=== PATIENT | male | born 1980 | race Caucasian/White ===

== ENCOUNTER 2025-02-25 15:53 | Outpatient (AMB) | payer OTHER, SELFPAY ==
--- OUTSIDE RECORDS SUMMARY | 2025-02-25 15:54 | XMS_ITS | Continuity of Care Document ---
Author Name [facility] Organization [facility] Care Team Providers Care Ignition Specialist Name Role Phone [facility] Unavailable Unavailable Immunizations Combined list of available immunizations from the Department of Defense and Veterans Affairs facilities. 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 Status Comments Source influenza, injectable, quadrivalent 2022 [id number] 158 Seqirus complet ed influenza , injectabl e, quadrival ent 05/04/23 Given Ambulat ory Pharmac y influenza, injectable, quadrivalent- pf 2021 [id number] 150 GlaxoSmithKli ne complet ed influenza , injectabl e, quadrival ent-pf 05/16/22 Given Ambulat ory Pharmac y influenza, injectable, quadrivalent- pf 2021 [id number] 150 GlaxoSmithKli ne complet ed influenza , injectabl e, quadrival ent-pf 05/16/22 Given Ambulat ory Pharmac y Influenza, injectable, quadrivalent, preservative free 0 2021 [id number] 150 SmithKline (SKB) complet ed Influenza , injectabl e, quadrival ent, preservat erin free [facility] influenza virus vaccine, inactivated 2020 [id number] Seqirus complet ed influenza virus vaccine, inactivat ed 06/18/21 Given Ambulat ory Pharmac y influenza virus vaccine, inactivated 2020 [id number] Seqirus complet ed influenza virus vaccine, inactivat ed 06/18/21 Given Ambulat ory Pharmac y Influenza, injectable, Madin Wellman Canine Kidney, quadrivalent with preservative 0 2020 [id number] 186 Seqirus (SEQ) comple t ed Influenza , injectabl e, Madin Carmela Canine Kidney, quadrival ent with preservat erin DoD COVID Vaccine Pfizer 2020 [id number] PFIZER complet ed COVID Vaccine Pfizer 12/25/20 Given Ambulat ory Pharmac y COVID Vaccine Pfizer 2020 [id number] PFIZER complet ed COVID Vaccine Pfizer 12/25/20 Given Ambulat ory Pharmac y SARS-COV-2 (COVID-19) vaccine, mRNA, spike protein, LNP, preservative free, 30 mcg/0.3mL dose 2 2020 [id number] 208 Pfizer, Inc (PFR) complet ed SARS-COV- 2 (COVID-19 ) vaccine, mRNA, spike protein, LNP, preservat erin free, 30 mcg/0.3mL dose DoD COVID Vaccine Pfizer 2020 [id number] 208 PFIZER complet ed COVID Vaccine Pfizer 12/04/20 Given Ambulat ory Pharmac y COVID Vaccine Pfizer 2020 [id number] PFIZER complet ed COVID Vaccine Pfizer 12/04/20 Given Ambulat ory Pharmac y SARS-COV-2 (COVID-19) vaccine, mRNA, spike protein, LNP, preservative free, 30 mcg/0.3mL dose 1 2020 [id number] 208 eBillme, Inc (PFR) complet ed SARS-COV- 2 (COVID-19 ) vaccine, mRNA, spike protein, LNP, preservat erin free, 30 mcg/0.3mL dose DoD influenza, injectable, quadrivalent- pf 2019 [id number] 150 Seqirus complet ed influenza , injectabl e, quadrival ent-pf 07/20/20 Given Ambulat ory Pharmac y influenza, injectable, quadrivalent- pf 2019 [id number] 150 Seqirus complet ed influenza , injectabl e, quadrival ent-pf 07/20/20 Given Ambulat ory Pharmac y Influenza, injectable, quadrivalent, preservative free 0 2019 [id number] 150 Seqirus (SEQ) complet ed Influenza , injectabl e, quadrival ent, preservat erin free DoD influenza, injectable, quadrivalent- pf 2018 [id number] 150 Seqirus complet ed influenza , injectabl e, quadrival ent-pf 06/27/19 Given Ambulat ory Pharmac y influenza, injectable, quadrivalent- pf 2018 [id number] 150 Seqirus complet ed influenza , injectabl e, quadrival ent-pf 06/27/19 Given Ambulat ory Pharmac y Influenza, injectable, quadrivalent, preservative free 0 2018 [id number] 150 Seqirus (SEQ) complet ed Influenza , injectabl e, quadrival ent, preservat erin free DoD tetanus, diphtheria, acellular pertu is 2018 [id number] 115 sanofi pasteur complet ed tetanus, diphtheri a, acellular pertussis 08/30/18 Given Ambulat ory Pharmac y tetanus, diphtheria, acellular pertu is 2018 [id number] 115 sanofi pasteur complet ed tetanus, diphtheri a, acellular pertussis 08/30/18 Given Ambulat ory Pharmac y tetanus toxoid, reduced diphtheria toxoid, and acellular pertu is vaccine, adsorbed 2 2018 [id number] 115 Sanofi Pasteur (PMC) complet ed tetanus toxoid, reduced diphtheri a toxoid, and acellular pertussis vaccine, adsorbed DoD influenza, injectable, quadrivalent- pf 2017 [id number] 150 Seqirus complet ed influenza , injectabl e, quadrival ent-pf 06/27/18 Given Ambulat ory Pharmac y influenza, injectable, quadrivalent- pf 2017 [id number] 150 Seqirus complet ed influenza , injectabl e, quadrival ent-pf 06/27/18 Given Ambulat ory Pharmac y Influenza, injectable, quadrivalent, preservative free 0 2017 [id number] 150 Seqirus (SEQ) comple t ed Influenza , injectabl e, quadrival ent, preservat erin free DoD influenza, injectable, quadrivalent 2016 [id number] ID Biomedical comple t ed influenza , injectabl e, quadrival ent 05/25/17 Given Ambulat ory Pharmac y influenza, injectable, quadrivalent 2016 [id number] 158 ID Biomedical comple t ed influenza , injectabl e, quadrival ent 05/25/17 Given Ambulat ory Pharmac y influenza, injectable, quadrivalent, contains preservative 0 2016 [id number] 158 (IDB) complet ed influenza , injectabl e, quadrival ent, contains preservat erin DoD influenza, seasonal, injectable-pf 2015 140 Seqirus complet ed influenza , seasonal, injectabl e-pf 06/25/16 Given Ambulat ory Pharmac y influenza virus vaccine, unspecified 2015 [id number] 88 Seqirus complet ed influenza virus vaccine, unspecifi ed 06/25/16 Given Ambulat ory Pharmac y influenza, seasonal, injectable-pf 2015 140 Seqirus complet ed influenza , seasonal, injectabl e-pf 06/25/16 Given Ambulat ory Pharmac y influenza virus vaccine, unspecified 2015 [id number] 88 Seqirus complet ed influenza virus vaccine, unspecifi ed 06/25/16 Given Ambulat ory Pharmac y Influenza, seasonal, injectable, preservative free 2015 CH[place], () Not Given Influenza , seasonal, injectabl e, preservat erin free DoD influenza virus vaccine, unspecified formulation 0 2015 [id number] 88 Seqirus (SEQ) comple t ed influenza virus vaccine, unspecifi ed formulati on DoD influenza, seasonal, injectable-pf 2014 [id number] 140 CSL Behring complet ed influenza , seasonal, injectabl e-pf 05/07/15 Given Ambulat ory Pharmac y influenza, seasonal, injectable-pf 2014 [id number] 140 CSL Behring complet ed influenza , seasonal, injectabl e-pf 05/07/15 Given Ambulat ory Pharmac y Influenza, seasonal, injectable, preservative free 0 2014 [id number] 140 CSL Biotherapies, Inc. ([facility]) complet ed Influenza , seasonal, injectabl e, preservat erin free DoD influenza, seasonal, injectable-pf 2013 [id number] 140 CSL Behring complet ed influenza , seasonal, injectabl e-pf 04/24/14 Given Ambulat ory Pharmac y Influenza, seasonal, injectable, preservative free 0 2013 [id number] 140 CSL Biotherapies, Inc. (CSL) complet ed Influenza , seasonal, injectabl e, preservat erin free DoD influenza, seasonal, injectable 2013 [id number] 141 CSL Behring complet ed influenza , seasonal, injectabl e 04/09/14 Given Ambulat ory Pharmac y influenza, seasonal, injectable 2013 [id number] 141 CSL Behring complet ed influenza , seasonal, injectabl e 04/09/14 Given Ambulat ory Pharmac y Influenza, seasonal, injectable 0 2013 [id number] 141 CS SVXRherapies, Inc. (CSL) complet ed Influenza , seasonal, injectabl e DoD Influenza, injectable, MDCK-pf 2012 [id number] 153 Novartis Pharmaceutica ls complet ed Influenza , injectabl e, MDCK-pf 05/16/13 Given Ambulat ory Pharmac y Influenza, injectable, MDCK-pf 2012 [id number] 153 Novartis Pharmaceutica ls complet ed Influenza , injectabl e, MDCK-pf 05/16/13 Given Ambulat ory Pharmac y Influenza, injectable, Madin Wellman Canine Kidney, preservative free 0 2012 [id number] 153 Novartis AppFirsttica l Zechariah. (NOV) complet ed Influenza , injectabl e, Madin Wellman Canine Kidney, preservat erin free DoD measles virus vaccine 0 2012 05 () Not Given measles virus vaccine DoD rubella virus vaccine 0 2012 06 () Not Given rubella virus vaccine DoD influenza, seasonal, injectable-pf 2011 [id number] 140 CSL Behring complet ed influenza , seasonal, injectabl e-pf 05/17/12 Given Ambulat ory Pharmac y influenza, seasonal, injectable-pf 2011 [id number] 140 CSL Behring complet ed influenza , seasonal, injectabl e-pf 05/17/12 Given Ambulat ory Pharmac y Influenza, seasonal, injectable, preservative free 0 2011 [id number] 140 CS SVXRherapies, Inc. (CSL) complet ed Influenza , seasonal, injectabl e, preservat erin free DoD influenza virus vaccine, live 2010 [id number] 111 Medimmune Inc comple t ed influenza virus vaccine, live 06/22/11 Given Ambulat ory Pharmac y influenza virus vaccine, live 2010 [id number] 111 Medimmune Inc comple t ed influenza virus vaccine, live 06/22/11 Given Ambulat ory Pharmac y influenza virus vaccine, live, attenuated, for intranasal use 0 2010 [id number] 111 [employer], Inc. (MED) complet ed influenza virus vaccine, live, attenuate d, for intranasa l use DoD influenza virus vaccine,split 2009 [id number] 1B 15 CSL Behring complet ed influenza virus vaccine,s plit 03/31/10 Given Ambulat ory Pharmac y influenza virus vaccine,split 2009 [id number] 1B 15 CSL Behring complet ed influenza virus vaccine,s plit 03/31/10 Given Ambulat ory Pharmac y influenza virus vaccine, split virus (incl. purified surface antigen)-reti red CODE 0 2009 [id number] 1B 15 CS [employer] Inc. (CSL) complet ed influenza virus vaccine, split virus (incl. purified surface antigen)- retired CODE DoD Novel influenza-H1N 1-09, injectable 2009 [id number] 1A 127 Novartis Pharmaceutica ls complet ed Novel influenza -J2L2-34, injectabl e 08/26/09 Given Ambulat ory Pharmac y Novel influenza-H1N 1-09, injectable 2009 [id number] 1A 127 Novartis Pharmaceutica ls complet ed Novel influenza -Y9I9-16, injectabl e 08/26/09 Given Ambulat ory Pharmac y Novel influenza-H1N 1-09, injectable 1 2009 [id number] 1A 127 Novartis AppFirsttica l Zechariah. (NOV) complet ed Novel influenza -[id number], injectabl e DoD typhoid Vi capsular polysaccharid e vac 2008 [id number] 101 sanofi pasteur complet ed typhoid Vi capsular polysacch aride vac 06/28/09 Given Ambulat ory Pharmac y influenza virus vaccine, live 2008 [id number] 111 Adwanted Inc comple t ed influenza virus vaccine, live 06/28/09 Given Ambulat ory Pharmac y hepatitis A-hepatitis B vaccine 2008 [id number] 5AA 104 GlaxoSmithKli ne complet ed hepatitis A-hepatit is B vaccine 06/28/09 Given Ambulat ory Pharmac y hepatitis A-hepatitis B vaccine 2008 [id number] 5AA 104 GlaxoSmithKli ne complet ed hepatitis A-hepatit is B vaccine 06/28/09 Given Ambulat ory Pharmac y influenza virus vaccine, live 2008 [id number] 111 Medimmune Inc comple t ed influenza virus vaccine, live 06/28/09 Given Ambulat ory Pharmac y hepatitis A-hepatitis B vaccine 2008 [id number] 5AA 104 GlaxoSmithKli ne complet ed hepatitis A-hepatit is B vaccine 06/28/09 Given Ambulat ory Pharmac y typhoid Vi capsular polysaccharid e vac 2008 [id number] 101 sanofi pasteur complet ed typhoid Vi capsular polysacch aride vac 06/28/09 Given Ambulat ory Pharmac y typhoid Vi capsular polysaccharid e vaccine 1 2008 [id number] 101 Sanofi Pasteur (PMC) complet ed typhoid Vi capsular polysacch aride vaccine DoD hepatitis A and hepatitis B vaccine 3 2008 [id number] 5AA 104 SmithKline (SKB) complet ed hepatitis A and hepatitis B vaccine DoD influenza virus vaccine, live, attenuated, for intranasal use 0 2008 [id number] 111 [employer]. (MED) complet ed influenza virus vaccine, live, attenuate d, for intranasa l use DoD hepatitis A-hepatitis B vaccine 2008 [id number] 5AA 104 GlaxoSmithKli ne complet ed hepatitis A-hepatit is B vaccine 08/23/08 Given Ambulat ory Pharmac y hepatitis A-hepatitis B vaccine 2008 [id number] 5AA 104 GlaxoSmithKli ne complet ed hepatitis A-hepatit is B vaccine 08/23/08 Given Ambulat ory Pharmac y hepatitis A-hepatitis B vaccine 2008 [id number] 5AA 104 GlaxoSmithKli ne complet ed hepatitis A-hepatit is B vaccine 08/23/08 Given Ambulat ory Pharmac y hepatitis A and hepatitis B vaccine 2 2008 [id number] 5AA 104 SmithKline (SKB) complet ed hepatitis A and hepatitis B vaccine DoD hepatitis A-hepatitis B vaccine 2007 [id number] 5AA 104 GlaxoSmithKli ne complet ed hepatitis A-hepatit is B vaccine 07/12/08 Given Ambulat ory Pharmac y hepatitis A-hepatitis B vaccine 2007 [id number] 5AA 104 GlaxoSmithKli ne complet ed hepatitis A-hepatit is B vaccine 07/12/08 Given Ambulat ory Pharmac y measles, mumps and rubella virus vaccine 0 2007 03 () Not Given measles, mumps and rubella virus vaccine DoD varicella virus vaccine 0 2007 21 () Not Given varicella virus vaccine DoD hepatitis A and hepatitis B vaccine 1 2007 [id number] 5AA 104 SmithKlLittle Big Things (SKB) complet ed hepatitis A and hepatitis B vaccine DoD tuberculin purified protein derivative 2007 [id number] 96 sanofi pasteur complet ed tuberculi n purified protein derivativ e 07/10/08 Given Ambulat ory Pharmac y tuberculin purified protein derivative 2007 [id number] 96 sanofi pasteur complet ed tuberculi n purified protein derivativ e 07/10/08 Given Ambulat ory Pharmac y tetanus, diphtheria, acellular pertu is 2007 [id number] 115 sanofi pasteur complet ed tetanus, diphtheri a, acellular pertussis 07/07/08 Given Ambulat ory Pharmac y meningococcal A,C,Y,W-135 (MCV4P) 2007 [id number] 114 sanofi pasteur complet ed meningoco ccal A,C,Y,W-1 35 (MCV4P) 07/07/08 Given Ambulat ory Pharmac y influenza virus vaccine,split 2007 [id number] 1A 15 CSL Behring complet ed influenza virus vaccine,s plit 07/07/08 Given Ambulat ory Pharmac y poliovirus vaccine, inactivated 2007 [id number] 10 sanofi pasteur complet ed polioviru s vaccine, inactivat ed 07/07/08 Given Ambulat ory Pharmac y influenza virus vaccine,split 2007 [id number] 1A 15 CSL Behring complet ed influenza virus vaccine,s plit 07/07/08 Given Ambulat ory Pharmac y poliovirus vaccine, inactivated 2007 [id number] 10 sanofi pasteur complet ed polioviru s vaccine, inactivat ed 07/07/08 Given Ambulat ory Pharmac y tetanus, diphtheria, acellular pertu is 2007 [id number] 115 sanofi pasteur complet ed tetanus, diphtheri a, acellular pertussis 07/07/08 Given Ambulat ory Pharmac y meningococcal A,C,Y,W-135 (MCV4P) 2007 [id number] 114 sanofi pasteur complet ed meningoco ccal A,C,Y,W-1 35 (MCV4P) 07/07/08 Given Ambulat ory Pharmac y poliovirus vaccine, inactivated 1 2007 [id number] 10 Sanofi Pasteur (PMC) complet ed polioviru s vaccine, inactivat ed DoD influenza virus vaccine, split virus (incl. purified surface antigen)-reti red CODE 0 2007 [id number] 1A 15 CS [employer] [place]. (CSL) complet ed influenza virus vaccine, split virus (incl. purified surface antigen)- retired CODE DoD meningococcal polysaccharid e (groups A, C, Y and W-135) diphtheria toxoid conjugate vaccine (MCV4P) 1 2007 [id number] 114 Sanofi Pasteur (PMC) complet ed meningoco ccal polysacch aride (groups A, C, Y and W-135) diphtheri a toxoid conjugate vaccine (MCV4P) DoD tetanus toxoid, reduced diphtheria toxoid, and acellular pertu is vaccine, adsorbed 1 2007 [id number] 115 Sanofi Pasteur (PMC) complet ed tetanus toxoid, reduced diphtheri a toxoid, and acellular pertussis vaccine, adsorbed DoD Results Combined list of recent chemistry, hematology and other laboratory results from Department of Defense and Veterans Affairs, ranging from 15 months to all on record, depending upon the facility. Order Name Results Value Reference Range Date Interpretation Specimen Comments Source Infectiou s Disease HIV-1/O/2 Non-Reac tive 1 (08/19/24 2:27 PM) 08/19 N Interpretiv e Data: INTERPRETAT ION: This method is a screening procedure for the detection of HIV p24 Antigen and Antibodies to HIV-1, including Group O, and/or HIV-2. NON-REACTIV E: HIV-1 antigen and HIV-1 / HIV-2 antibodies were not detected. No laboratory evidence of HIV infection. A negative test result does not exclude the possibility of exposure to or infection with HIV. HIV antibodies and/or p24 antigen may be undetectabl e in some stages of the infection and in some clinical conditions. If acute HIV infection is suspected, consider submitting another specimen to a reference laboratory for HIV-1 RNA. SCREEN REACTIVE - CONFIRMATIO N TO FOLLOW: Possible presence of HIV-1antibo dies, HIV-2 antibodies and/or HIV-1 p24 antigen. Specimen will reflex to the confirmatio n testing that fulfills the Center for Disease Control and Prevention' s HIV diagnostic algorithm. Refer to [facility] Lab Guide for additional information : [email or web address] x Testing performed by [id number] Miscellan eous Sendouts Repository Sample Received (08/19/24 2:27 PM) 08/19 N [id number] Encounters Combined list of: 1) Encounters from Department of Veterans Affairs facilities going backup to the last 18 months, not all [place] inpatient encounters are included; 2) Encounters from the Department of [facility] facilities going backup to 280 months. Location Location Details Encounter Type Encounter Number Reason For Visit Attending Provider ADM Date DC Date Status Disposition Source [id number] AMDS Between Visit [id number] 08/05 Discharge Disposition: Home or Self Care [id number] AMDS [id number] AMDS Outpatient [id number] MIRELLA TAYLOR 08/20 Discharge Disposition: Home or Self Care [id number] AMDS [id number] AMDS Care Not Rendered [id number] 08/21 Discharge Disposition: Home or Self Care [id number] AMDS [id number] AMDS Dental [id number] LUIGI JACOB 12/25 Discharge Disposition: Home or Self Care [id number] AMDS Procedures Combined list of: 1) Procedures from [facility] of Veterans Affairs facilities going back up to thelast 18 months, not all [place] non-surgical procedures are included; 2) All procedures from the Department of [facility] facilities. Procedure Procedure Type Code Date Perfomer Comments Sourc e No data available for this section Ambulato ry Pharmacy PSYCHIATRIC DIAGNOSTIC EVALUATION 08/06/2022 DoD Social History Combined list of available smoking, tobacco, and other social history from Department of Defense and Veterans Affairs facilities. Social History Type Response Date Comment Sourc e This section is an empty social history section. DoD Assessment and Plan Combined list of future care activities from Department of Defense and Veterans Affairs facilities (e.g., assessment and plan notes, appointments, orders, and referrals). Additional future care activities may be listed in the Plan of Care section. Result Assessment and Plan Date Source Assessment and Plan No data available for this section 02/25/2025 Ambulatory Pharmacy Functional Status Combined list of recent functional and cognitive assessments recorded at [facility] of Defense and [facility] ([facility]).VA Functional [place] Measurement (FIM) Scale: 1 = Total Assistance (Subject = 0% +), 2 = Maximal Assistance (Subject = 25% +), 3 = Moderate Assistance (Subject = 50% +), 4 = Minimal Assistance (Subject = 75% +), 5 = Supervision, 6 = Modified [place] (Device), 7 = Complete [place] (Timely, Safely). Assessment Date/Time Source Assessment Type Assessment Skill Assessment Score Assessment Details No data available for this section
--- OUTSIDE RECORDS SUMMARY | 2025-02-25 15:55 | XMS_ITS | Clinical Summary ---
Author Organization [facility] [employer] [facility] lin Address [address] [place] [address] Care Team Providers Care Glove Operator Name Role Phone Pcp, No Primary Care Provider [phone] Allergies No known active allergies Medications No known medications Active Problems No known active problems Social History Tobacco Use Types Packs/Day Years Used Date Smoking Tobacco: Some Days Smokeless Tobacco: Never Alcohol Use Standard Drinks/Week Comments Yes 0 (1 standard drink = 0.6 oz pur e alcohol) Sex and Gender Information Value Date Recorded Sex Assigned at Not on file Legal Sex Male 7:24 AM EDT Gender Identity Not on file Sexual Orientation Not on file Last Filed Vital Signs Vital Sign Reading Time Taken Comments Blood Pressure - - Pulse 80 01/05/2021 2:08 PM EDT Temperature 36.3 C (97.3 F) 01/05/2021 2:08 PM EDT Respiratory Rate - - Oxygen Saturation 99% 01/05/2021 2:08 PM EDT Inhaled Oxygen Concentration - - Weight - - Height - - Body Mass Index - - Plan of Treatment Health Maintenance Due Date Last Done Comments Colorectal Cancer: COLONOSCO PY Screening every 10 yrs (or Modifier) 1978 Depression: Screening Annual ly using PHQ-2/9 in Adults 18 yrs or above (or HM Modifier)([facility]) 1996 Hepatitis C Virus Infection in Adolescents and Adults: Screening (or Modifier) ([facility]) 1996 SDNV Screening Reminder: Asmita rosen for all adults ([facility]) 1996 Tobacco Smoking Cessation: i n Adults excluding Women: Behavioral and Pharmacotherapy Interventions ([facility]) 1996 DTaP/Tdap/Td Vaccines ([facility]) (1 - Tdap) 1997 Colorectal Cancer Screening 45 -75 Yrs (or HM Modifier) 2023 Colorectal Cancer: FLEXIBLE SIGMOIDOSCOPY Screening every 5 yrs 2023 Colorectal Cancer: Fecal Immunochemical Test (FIT) Annually [facility] 2023 Colorectal Cancer: High-sens itivity gFOBT Screening Annually [facility] 2023 Colorectal Cancer: Stool Col oguard Screening every 3 yrs 2023 Colorectal Cancer:CT Colonog warren Screening every 5 yrs 2023 COVID-19 Vaccine Screening: Initial Series and Booster Status ([facility]) (2023- season) 2024 Flu Vaccination: Yearly for ages 18mos through 64 years (or Modifier)([facility]) 02/18/2025 Zoster/Shingles Vaccine Seri es Screening: Adults aged 18+ yrs (or HM Modifiers)([facility]) (1 of 2) 2028 Pneumococcal Vaccination Scr eening: Pts 0-19 & 19-49 yrs of age ([facility]) Aged Out No longer eligible based on patient's age to complete this topic Medical Devices Not on file Care Teams Glove Operator Relationship Specialty Start Date End Date Pcp, No PCP - General Family Medicine 08/15/21
--- OUTSIDE RECORDS SUMMARY | 2025-02-25 15:55 | XMS_ITS | Clinical Summary ---
Author Organization [facility] ity Address [address] [place] [address] Care Team Providers Care Pony Worker Name Role Phone Unavailable Primary Care Provider Unavailabl e Social History Tobacco Use Types Packs/Day Years Used Date Smoking Tobacco: Never Assessed Sex and Gender Information Value Date Recorded Sex Assigned at Not on file Legal Sex Male 8:09 PM EST Gender Identity Not on file Sexual Orientation Not on file Plan of Treatment Health Maintenance Due Date Last Done Comments DTaP,Tdap,and Td Vaccines (1 - Tdap) 1997 Hepatitis B Vaccines (1 of 3 - 19+ 3-dose series) 1997 Cholesterol Screening (Lipid Panel) 08/14/2023 Colorectal Cancer Screening: Colonoscopy 08/14/2023 HIV Screening 08/14/2023 Hepatitis C Screening 08/14/2023 Social Influencers of Health Screening 08/14/2023 COVID-19 Vaccine ( - 2023-2 5 season) 2024 Depression Screening 07/21/2024 Influenza Vaccine (#1) 2025 HIB Vaccines Aged Out No longer eligi ble based on patient's age to complete this topic HPV Vaccines Aged Out No longer eligi ble based on patient's age to complete this topic Hepatitis A Vaccines Aged Out No long er eligible based on patient's age to complete this topic IPV Vaccines Aged Out No longer eligi ble based on patient's age to complete this topic MMR Vaccines Aged Out No longer eligi ble based on patient's age to complete this topic Meningococcal ACWY Vaccine Aged Out N o longer eligible based on patient's age to complete this topic Meningococcal B Vaccine Aged Out No l onger eligible based on patient's age to complete this topic Pneumococcal Vaccine: Pediat rics (0 to 5 Years) and At-Risk Patients (6 to 49 Years) Aged Out No longer eligible b ased on patient's age to complete this topic RSV Immunization Patients Un aneta 20 months Aged Out No longer eligible b ased on patient's age to complete this topic Varicella Vaccines Aged Out No longer eligible based on patient's age to complete this topic
--- NOTE | 2025-02-25 16:06 | MHC.PC.OV ---
Vital Signs 02/25/25 16:07 Height 6 ft Weight 188 lb 2 oz BMI 25.5 BP 132/100 H Blood Pressure Location Lt brachial Position Sitting Respiration 18 Pulse 110 H Pulse Source Pulse Oximeter Temp 98.4 F Temp Source Oral Pulse Oximetry (%) 96 Oxygen Delivery Method Room Air Intake Visit Reasons: establish care Team Otr Truck Driver Required: No Accompanied by: Self / Same As Patient Allergies No Known Allergies Allergy (Verified 02/25/25 16:32) Medication List - Last Reconciled 02/25/25 by REBECCA Monaco No Known Home Meds Tobacco use date assessed: 02/25/25 Dental Screening Dental Screen Date: 02/25/25 Did you have a dental visit in the last 12 months?: Yes Did you have a dental problem in the last 6 months where you did not have access to dental care?: No Was dental information given to patient?: Patient has dentist HPI establish care HPI Details Previous PCP: no, when he was a kid Last visit: Last PE: Specialist: no OBGYN: Past medical history:seizure when he was in 8 grade, asthma, high blood pressure Medications: Family HX: htn: father, mother ; alzheimers, Problem: The patient is a 44-year-old male presenting for evaluation of hypertension, right shoulder pain, and left ankle sprain. Hypertension has been noted with elevated readings, particularly the diastolic pressure, and the patient has not had a primary care physician for many years, indicating a lack of regular monitoring. The patient reports a history of asthma, which has not required medication for a long time, suggesting mild or well-controlled symptoms. The patient experienced a seizure in the 8th grade but has not had any subsequent episodes, indicating a resolved seizure disorder. The patient reports symptoms of depression but has not engaged in regular therapy or medication management, although he is open to exploring these options. Vision impairment has been noted, with difficulty reading and the use of [id number] reading glasses, suggesting presbyopia. The patient reports right shoulder pain following a fall, with associated tingling in the right hand, indicating possible nerve involvement. The shoulder pain limits his ability to perform push-ups, and the tingling sometimes progresses to numbness. The left ankle was sprained a few weeks ago, with persistent swelling and pain, raising concerns about the ability to perform physical activities such as running. [facility] Medical History (Updated 03/21/25 @ 19:25 by REBECCA Monaco) Asthma Seizure Family History (Updated 02/25/25 @ 16:16 by Hazel Castro MA) Father Age: 79 Hypertension Skin cancer Mother Dementia Social History (Updated 02/25/25 @ 16:14 by Hazel Castro MA) Household Members: Friend(s) Housing: Apartment Alcohol intake: current Patient Tobacco Use Status: Never used Tobacco e-Cigarette/Vaping Use: Former Use service: Yes Current occupational status: employed Current occupation: [employer] Current occupational exposures/hazards: No Cognitive needs: No Hearing needs: No Vision needs: Yes Questionnaire PHQ-9 Over the last 2 weeks, how often have you been bothered by any of the following problems? 1. Little interest or pleasure in doing things: several days 2. Feeling down, depressed, or hopeless: several days 3. Trouble falling or staying asleep, or sleeping too much: several days 4. Feeling tired or having little energy: not at all 5. Poor appetite or overeating: not at all 6. Feeling bad about yourself - or that you are a failure or have let yourself or your family down: not at all 7. Trouble concentrating on things, such as reading the newspaper or watching television: not at all 8. Moving or speaking so slowly that other people could have noticed. Or the opposite - being so fidgety or restless that you have been moving around a lot more than usual: not at all 9. Thoughts that you would be better off or of hurting yourself in some way: not at all Total score: 3 Source: Developed by Drs. Aiden Alegria, Yessenia Levy, Ricky Butler and colleagues, with an educational stefano from [employer]. Thrive Questionnaire Date Thrive assessed: 02/25/25 I am a: Patient What is your living situation today?: I have a steady place to live Within the past 12 months, did the food you bought not last and you didn't have the money to get more?: Never true Within the past 12 months, did you worry whether your food would run out before you got money to buy more?: Never true Do you have trouble paying for medicines?: I choose not to answer this question Do you have trouble getting transportation to medical appointments?: I choose not to answer this question Do you have trouble paying your heating and electricity bill?: I choose not to answer this question Do you have trouble taking care of your child, family member or friend?: I choose not to answer this question Do you have trouble with day-to-day activities such as bathing, preparing meals, shopping, managing finances, etc.?: No Are you currently unemployed and looking for a job?: No Are you interested in more education?: No Please select the resources that you would like help with: Food, Transportation and Job search/training Currently or been in a relationship where the following occur: I choose not to answer THRIVE Score: 0 AUDIT C Alcohol Use Questionnaire (AUDIT-C) 1. How often do you have a drink containing alcohol?: 2-3 times a week 2. How many drinks containing alcohol do you have on a typical day when you are drinking?: 3 or 4 3. How often do you have six or more drinks on one occasion?: Monthly Total Score: 6 JOEL-7 AMB Questionnaire JOEL-7 Date JOEL - 7 assessed: 02/25/25 Feeling nervous, anxious, or on edge: 1 = Several days Not being able to stop or control worryin = Several days Worrying too much about different things: 1 = Several days Trouble relaxin = Not at all Being so restless that it is hard to sit still: 0 = Not at all Becoming easily annoyed or irritable: 0 = Not at all Feeling afraid as if something awful might happen: 0 = Not at all Total JOEL-7 score (0-4 normal; 5-9 mild; 10-14 moderate; 15-21 severe): 3 Source: Developed by Drs. Aiden Alegria, Yessenia Levy, Ricky Butler and colleagues, with an educational stefano from [employer]. Review of Systems Const Denies headache(s) Eyes Denies loss of vision ENT Denies vertigo, Denies dizziness, Denies headache(s) and Denies sore throat Card Denies chest pain, Denies leg edema and Denies lightheadedness Resp Denies cough, Denies hemoptysis and Denies wheezing GI Denies abdominal pain, Denies melena, Denies constipation, Denies diarrhea and Denies vomiting Denies dysuria, Denies urinary frequency and Denies urinary urgency Musc Reports arthralgias (Right shoulder and left ankle), Reports joint swelling (Left ankle), Reports numbness (Fingers in right hand) and Reports tingling (Fingers in right hand) Neuro Denies Abnormal speech present, Denies behavioral changes, Denies vertigo, Denies dizziness, Denies headache(s), Denies loss of vision, Denies memory loss, Reports numbness (Fingers in right hand) and Reports tingling (Fingers in right hand) Psych Denies anxiety, Denies behavioral changes, Denies depression, Denies memory loss and Denies panic attacks Catrachito/Lymph Denies easy bleeding and Denies easy bruising Aller/Immun Denies wheezing Physical exam (Primary Care) Vital Signs: Last Vital Signs Pulse 110 H 02/25/25 16:07 BP 132/100 H 02/25/25 16:07 Pulse Ox 94 02/25/25 16:07 BMI result Body Mass Index 25.5 Tobacco/Smoking Status: Tobacco use Status Tobacco use date assessed 02/25/25 02/25/25 16:18 Patient Tobacco Use Status Never used Tobacco 02/25/25 16:18 e-Cigarette/Vaping Use Former Use 02/25/25 16:18 PHQ-9: PHQ-9 Score PHQ-9: Total score 3 02/25/25 16:38 Thrive Assessment: Date of Thrive Assessment Date Thrive assessed 02/25/25 02/25/25 16:18 Currently or been in a relationship where the following occur: I choose not to answer Const General: healthy appearing, no acute distress, alert and awake Nutritional Appearance: well nourished Orientation/consciousness: oriented to person, oriented to place and oriented to time [facility] Ears: TM's normal bilaterally General nose exam: Normal nasal mucous membranes and turbinates present Eyes Conjunctivae: conjunctivae normal Sclerae: sclerae normal Pupils: Equal, round and reactive pupils present Neck Neck: Yes no lymphadenopathy and Yes no JVD Thyroid: Thyroid normal Carotids: no bruits Resp Effort & Inspection: normal respiratory effort and not tachypneic Auscultation: no crackles, no rales, no rhonchi and no wheezes Cardio Rate: regular rate Rhythm: regular rhythm Heart sounds: no murmurs and normal S1 and S2 GI Palpation (GI): Soft to palpation, nontender, no hepatomegaly and no splenomegaly Auscultation: normal bowel sounds Skin General skin exam: no rashes or lesions noted and dry skin Neuro General: oriented to person, oriented to place and oriented to time Cranial nerves: Yes Equal, round and reactive pupils present Speech: No Abnormal speech present Gait exam (Neuro): Normal gait present Motor exam (neuro): no tremor noted Extrem Right upper extremity: full ROM and shoulder/upper arm Details: tenderness and abnormal ROM Details: pain with active ROM and pain with passive ROM; no swelling Left upper extremity: full ROM Right lower extremity: full ROM; no edema Left lower extremity: full ROM and ankle Details: swelling Details: laterally; no tenderness; no edema Psych Mental Status: mental status grossly normal Speech and movement: Normal speech and movement present Affect: normal affect Attitude: cooperative Thought process: Normal thought process present Coding Level of Care Code New Pt Level 4 (73951) Diagnoses Right shoulder pain, unspecified chronicity M25.511 Chronicity: unspecified Numbness and tingling of right arm R20.0; R20.2 Sprain of left ankle, unspecified ligament, subsequent encounter S93.402D Encounter type: subsequent encounter Involved ligament of ankle: unspecified ligament Presbyopia H52.4 Depression, unspecified depression type F32.A Depression Type: unspecified Time Spent (min) 39 Assessment & Plan Assessment & Plan (1) Right shoulder pain: Code(s): M25.511 - Pain in right shoulder Category: Medical Qualifiers: Chronicity: unspecified Qualified Code(s): M25.511 - Pain in right shoulder (2) Numbness and tingling of right arm: Code(s): R20.0 - Anesthesia of skin; R20.2 - Paresthesia of skin Category: Medical (3) Left ankle sprain: Code(s): S93.402A - Sprain of unspecified ligament of left ankle, initial encounter Category: Medical Qualifiers: Encounter type: subsequent encounter Involved ligament of ankle: unspecified ligament Qualified Code(s): S93.402D - Sprain of unspecified ligament of left ankle, subsequent encounter (4) Presbyopia: Code(s): H52.4 - Presbyopia Category: Medical (5) Depression: Code(s): F32.A - Depression, unspecified Category: Medical Qualifiers: Depression Type: unspecified Qualified Code(s): F32.A - Depression, unspecified Plan The plan for hypertension includes re-evaluation of blood pressure readings and consideration of lifestyle modifications or pharmacotherapy if necessary. The patient will be monitored for any changes in blood pressure and advised to maintain a healthy lifestyle to manage hypertension effectively. For the right shoulder pain and associated tingling in the right hand, an x-ray of the shoulder and a nerve conduction study are planned to assess for any structural or nerve-related issues. The patient is advised to avoid activities that exacerbate the pain and to consider physical therapy if symptoms persist. The left ankle sprain will be managed with rest, ice, compression, and elevation RICE) therapy, and the patient is advised to avoid strenuous activities until the swelling and pain subside. Follow-up will be necessary to ensure proper healing and to evaluate the need for further intervention. For depression, the patient is encouraged to seek counseling or therapy and to consider pharmacotherapy if symptoms do not improve. A referral to a mental health professional may be considered based on the patient's preference and response to initial interventions. Vision impairment will be addressed by recommending an merchandising director visit for a comprehensive eye examination and prescription glasses if needed. The patient is advised to monitor any changes in vision and to seek further evaluation if symptoms worsen. Preventative care includes a recommendation for colon cancer screening with a stool test Cologuard) as part of routine health maintenance. The patient is informed about the importance of regular screenings and advised to follow up with the test as recommended. Patient was informed and verbally consented to the use of an ambient scribe for clinic note documentation during this visit. Orders: Orders Comprehensive [place]. Panel Fast 02/28/25 - Encounter for general adult medical examination without abnormal findings Lipid Panel 02/28/25 - Encounter for general adult medical examination without abnormal findings XR shoulder RT min 2V 02/28/25 M25.511 - Pain in right shoulder NE nerve conduction velocity 02/25/25 R20.0 - Anesthesia of skin, R20.2 - Paresthesia of skin Complete Blood Count Auto Diff 02/28/25. - Encounter for general adult medical examination without abnormal findings TSH reflex Free T4 02/28/25 - Encounter for general adult medical examination without abnormal findings UA CC w/rflx Micro + Cult 02/28/25 Z00.00 - Encounter for general adult medical examination without abnormal findings Vitamin D 25-OH Total 02/28/25 Z00.00 - Encounter for general adult medical examination without abnormal findings NE electromyogram (EMG) 02/25/25 R20.0 - Anesthesia of skin, R20.2 - Paresthesia of skin
[2025-02-25 16:07] VITALS: BP 132/100; PULSE 110; RESP 18; TEMP 36.9; O2SAT 96; BMI 25.5
== END 2025-02-25 16:54 | disposition home or self-care (01) ==
LOC: HO.HMCH 15:54
DX: M25.511 Pain in right shoulder (principal); R20.0 Anesthesia of skin; R20.2 Paresthesia of skin; S93.402D Sprain of unspecified ligament of left ankle, subsequent encounter; H52.4 Presbyopia; F32.A Depression, unspecified

== ENCOUNTER → 2025-02-25 15:53 | Outpatient (BNVA) | payer OTHER, SELFPAY | DX: M25.511 Pain in right shoulder (principal); R20.0 Anesthesia of skin; R20.2 Paresthesia of skin; S93.402D Sprain of unspecified ligament of left ankle, subsequent encounter; H52.4 Presbyopia; F32.A Depression, unspecified | CPT/HCPCS: 99202 ==

== ENCOUNTER 2025-02-28 08:16 | Outpatient (REF) | payer OTHER, SELFPAY ==
--- NOTE | ~2025-02-28 | XR_ITS ---
CLINICAL HISTORY: M25.511 - Pain in right shoulder 4 view right shoulder Comparison: None provided Findings: Nondisplaced fracture of the right greater tuberosity. No erosions. No radiopaque foreign body. IMPRESSION: Nondisplaced fracture of the right greater tuberosity This document has been electronically signed by: Ruddy Decker MD on 02/28/2025 15:21:44
--- OUTSIDE RECORDS SUMMARY | 2025-02-28 08:38 | XMS_ITS | Clinical Summary ---
Author Organization [facility] ity Address [address] [place] [address] Care Team Providers Care Head Start Director Name Role Phone Unavailable Primary Care Provider [...]
--- OUTSIDE RECORDS SUMMARY | 2025-02-28 08:38 | XMS_ITS | Clinical Summary ---
Author Organization [facility] Address [address] [place] [id number] Phone Care Team Providers Care Computer Help Desk Specialist Name Role Phone Unknown, Unknown Primary Care Provider Sherry woodruff Allergies No known active allergies Medications predniSONE (DELTASONE) 10 MG tablet Take 1 tablet (10 mg total) by mouth daily. 60 mg for 2 days, then 40 mg for 2 days, then 20 mg for 2 days, then 10 mg for 2 days 26 tablet 04/02/2021 Active Social History Tobacco Use Types Packs/Day Years Used Date Smoking Tobacco: Never Assessed Education Answer Date Recorded Are you interested in more education? Not on fortunato e 11/15/2022 Are you concerned about learning? Not on file 11/15/2022 No 11/15/2022 No 11/15/2022 Digital Access Answer Date Recorded No 12/14/2022 No 12/14/2022 No 12/14/2022 Reliable internet access at home? Not on file 12/14/2022 Device with a working camera? Not on file Sex and Gender Information Value Date Recorded Sex Assigned at Not on file Legal Sex Male 12:49 PM EDT Gender Identity Not on file Sexual Orientation Not on file Plan of Treatment Health Maintenance Due Date Last Done Comments Adult Td,Tdap Booster 1978 LIPID PANEL 1978 DEPRESSION SCREENING 1990 SMOKING Hx and SMOKELESS TOB ACCO SCREENING 1991 HEPATITIS C SCREENING 1996 HIV ONE-TIME SCREENING (18-6 5 YEARS) 1996 COLOGUARD 2023 COLONOSCOPY 2023 COLORECTAL CANCER SCREENING 2023 FIT TEST 2023 FOBT 2023 SIGMOIDOSCOPY 2023 VIRTUAL COLONOSCOPY 2023 COVID-19 VACCINE (2023-2 5 season) 2024 12/04/2020 HEPATITIS A VACCINES Aged Out No long er eligible based on patient's age to complete this topic HIB VACCINES Aged Out No longer eligi ble based on patient's age to complete this topic MENINGOCOCCAL VACCINES (ACWY) Aged Out No longer eligible based on patient's age to complete this topic MENINGOCOCCAL VACCINES (B) Aged Out N o longer eligible based on patient's age to complete this topic PNEUMOCOCCAL VACCINES (0-49 years) Aged Out No longer eligible based on patient's age to complete this topic Medical Devices Not on file Insurance [employer] [facility] [employer] [facility] [employer] [facility] [employer] [facility] Care Teams Computer Help Desk Specialist Relationship Specialty Start Date End Date Unknown, Unknown, PCP - General 02/22/20 Additional Source Comments The information contained in this document represents components of the legal health record. It is not the complete legal health record.[facility]
--- OUTSIDE RECORDS SUMMARY | 2025-02-28 08:38 | XMS_ITS | Clinical Summary ---
Author Organization [facility] lin Address [address] [place] [address] Care Team Providers Care Display Department Manager Name Role Phone Pcp, No Primary Care Provider Allergies No known active allergies Medications No [...] yrs or above (or HM Modifier)([facility]) 1996 Hepatitis C Virus Infection in Adolescents and Adults: Screening (or Modifier) ([facility]) 1996 SDPA Screening Reminder: Asmita rosen for all adults ([facility]) 1996 Tobacco Smoking Cessation: i n Adults excluding Women: Behavioral and Pharmacotherapy Interventions ([facility]) 1996 DTaP/Tdap/Td Vaccines ([facility]) (1 - Tdap) 1997 Colorectal Cancer Screening 45 -75 Yrs (or HM Modifier) 2023 Colorectal Cancer: FLEXIBLE SIGMOIDOSCOPY Screening every 5 yrs 2023 Colorectal Cancer: Fecal Immunochemical Test (FIT) Annually [facility] 2023 Colorectal Cancer: High-sens itivity gFOBT Screening Annually [facility] 2023 Colorectal Cancer: Stool Col oguard Screening every 3 yrs 2023 Colorectal Cancer:CT Colonog warren Screening every 5 yrs 2023 COVID-19 Vaccine Screening: Initial Series and Booster Status ([facility]) (2023- season) 2024 Flu Vaccination: Yearly for ages 18mos through 64 years (or Modifier)([facility]) 02/18/2025 Zoster/Shingles Vaccine Seri es Screening: Adults aged 18+ yrs (or HM Modifiers)([facility]) (1 of 2) 2028 Pneumococcal Vaccination Scr eening: Pts 0-19 & 19-49 yrs of age ([facility]) Aged Out No longer eligible based on patient's age to complete this topic Medical Devices Not on file Care Teams Display Department Manager Relationship Specialty Start Date End Date Pcp, No PCP - General Family Medicine 08/15/21
[2025-02-28 08:45] LABS: MANUAL DIFF FLAG NO
[2025-02-28 09:11] LABS: Hematocrit 45.0 % (42.0-52.0); Hemoglobin 15.9 g/dl (14.0-18.0); Imm Gran Abs Auto 0.01 X10*3/uL (0.00-0.03); Imm Gran Pct Auto 0.2 % (0.0-0.4); Lymphocytes Absolute Auto 2.0 X10*3/uL (1.2-4.9); Mean Corpuscular HGB Conc 35.3 g/dl (31.0-36.0); Mean Corpuscular Hemoglobin 31.5 pg (27.0-33.0); Mean Corpuscular Volume 89.3 fL (80.0-98.0); NRBC Abs Auto 0.000 X10*3/uL (0.0-0.012); NRBC Pct Auto 0.0 /100WBC (0.0-0.2); Platelet Count 213 X10*3/uL (160-400); Red Blood Count 5.04 X10*6/uL (4.60-5.80); White Blood Count 5.7 X10*3/uL (4.8-10.8)
[2025-02-28 09:40] LABS: Alanine Aminotransferase 91 U/L (0-40); Albumin Level 4.6 g/dL (3.5-5.0); Alkaline Phosphatase 93 U/L (39-117); Anion Gap 13 (12-20); Aspartate Amino Transferase 55 U/L (5-37); Blood Urea Nitrogen 8 mg/dL (9-16); Calcium 9.7 mg/dL (8.4-10.2); Carbon Dioxide 28 mmol/L (22-29); Chloride 101 mmol/L (96-108); Cholesterol 250 mg/dL (<200); Estimated Glomerular Filt Rate > 60; HDL Cholesterol 65 mg/dL (>40); Potassium 3.6 mmol/L (3.3-5.1); Sodium 138 mmol/L (135-145); Total Protein 7.9 g/dL (6.5-8.0); Triglycerides 147 mg/dL (<150)
[2025-02-28 10:44] LABS: Appearance Urine Clear; Glucose Urine UA Negative (Negative); PH 6.0 (5.0-9.0); Specific Gravity - Urine 1.010 (1.005-1.025)
== END 2025-02-28 08:17 | disposition home or self-care (01) ==
LOC: HO.LAB 08:16
DX: Z00.00 Encounter for general adult medical examination without abnormal findings (principal); M25.511 Pain in right shoulder
CPT/HCPCS: 36415; 73030; 80053; 80061; 81003; 82306; 84443; 85025

== ENCOUNTER → 2025-02-28 09:30 | Outpatient (BNV) | payer OTHER, SELFPAY | PROVIDERS: Visit Provider Radiology Vascular & Interventional Radiology | DX: M25.511 Pain in right shoulder (principal); S42.254A Nondisplaced fracture of greater tuberosity of right humerus, initial encounter for closed fracture | CPT/HCPCS: 73030 ==

== ENCOUNTER → 2025-04-05 08:37 | Outpatient (BNV) | payer OTHER, SELFPAY | PROVIDERS: Visit Provider Psychiatry & Neurology Neurology | DX: G58.8 Other specified mononeuropathies (principal) | CPT/HCPCS: 95886; 95910 ==

== ENCOUNTER 2025-04-05 08:38 | Outpatient (REF) | payer OTHER, SELFPAY ==
--- NOTE | 2025-04-05 08:37 | EMG_ITS ---
Chief complaint: Numbness and tingling of the right arm Reason for referral: Evaluation for peripheral neuropathy / radiculopathy Referred by: Dean Brice NP Procedure done: Right upper extremity NSC and right upper extremity EMG Right median and ulnar motor and sensory studies were performed right radial sensory and median and lateral antecubital brachial sensory and dorsal ulnar cutaneous sensory study was performed. EMG needle examination was performed. 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
--- OUTSIDE RECORDS SUMMARY | 2025-04-05 10:22 | XMS_ITS | Clinical Summary ---
Author Organization [facility] lin Address [address] [place] [address] Care Team Providers Care Open Hearth Melter Name Role Phone Pcp, No Primary Care Provider [phone] Allergies No known active allergies Medications No [...] Adults 18 yrs or above (or HM Modifier)([facility]) 1996 Hepatitis C Virus Infection in Adolescents and Adults: Screening (or Modifier) ([facility]) 1996 SDCA Screening Reminder: Asmita rosen for all adults ([facility]) 1996 Tobacco Smoking Cessation: i n Adults excluding Women: Behavioral and Pharmacotherapy Interventions ([facility]) 1996 DTaP/Tdap/Td Vaccines ([facility]) (1 - Tdap) 1997 Colorectal Cancer Screening 45 -75 Yrs (or HM Modifier) 2023 Colorectal Cancer: FLEXIBLE SIGMOIDOSCOPY Screening every 5 yrs 2023 Colorectal Cancer: Fecal Immunochemical Test (FIT) Annually [facility] 2023 Colorectal Cancer: High-sens itivity gFOBT Screening Annually [facility] 2023 Colorectal Cancer: Stool Col oguard Screening every 3 yrs 2023 Colorectal Cancer:CT Colonog warren Screening every 5 yrs 2023 Flu Vaccination: Yearly for ages 18mos through 64 years (or Modifier)([facility]) 02/18/2025 Zoster/Shingles Vaccine Seri es Screening: Adults aged 18+ yrs (or HM Modifiers)([facility]) (1 of 2) 2028 Pneumococcal Vaccination Scr eening: Pts 0-19 & 19-49 yrs of age ([facility]) Aged Out No longer eligible based on patient's age to complete this topic Medical Devices Not on file Care Teams Open Hearth Melter Relationship Specialty Start Date End Date Pcp, No PCP - General Family Medicine 08/15/21
--- OUTSIDE RECORDS SUMMARY | 2025-04-05 10:22 | XMS_ITS | Clinical Summary ---
Author Organization [facility] ity Address [address] [place] [address] Care Team Providers Care Orthotic/Prosthetic Practitioner Name Role Phone Unavailable Primary Care Provider [...] 08/14/2023 Social Influencers of Health Screening 08/14/2023 Depression Screening 07/21/2024 COVID-19 Vaccine ( - 2023-2 5 season) 2025 Influenza Vaccine (#1) 2025 HIB Vaccines Aged [...]
--- OUTSIDE RECORDS SUMMARY | 2025-04-05 10:22 | XMS_ITS | Clinical Summary ---
Author Organization [facility] Address [address] [place] [phone] Phone Care Team Providers Care Calender Operator Name Role Phone Unknown, Unknown Primary Care [...] FOBT 2023 SIGMOIDOSCOPY 2023 VIRTUAL COLONOSCOPY 2023 INFLUENZA VACCINE (#1) 2025 07/20/2020 COVID-19 VACCINE ( - 2 6 season) 2025 12/04/2020 HEPATITIS A VACCINES Aged Out No [...] topic Medical Devices Not on file Insurance [employer] [facility] [employer] Mobile [facility] Care Teams Calender Operator Relationship Specialty Start Date End Date Unknown, Unknown, PCP - General 02/22/20 Additional Source Comments The information contained in this document represents components of the legal health record. It is not the complete legal health record.[facility]
== END 2025-04-05 08:39 | disposition home or self-care (01) ==
LOC: HO.NEURO 08:38
DX: R20.0 Anesthesia of skin (principal); R20.2 Paresthesia of skin
CPT/HCPCS: 95886; 95910

== ENCOUNTER 2025-04-08 08:31 | Outpatient (AMB) | payer OTHER, SELFPAY ==
[2025-04-08 08:33] VITALS: BP 128/98; PULSE 100; RESP 18; TEMP 36.1; O2SAT 92; BMI 25.9
--- NOTE | 2025-04-08 08:33 | MHC.PC.OV ---
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 Required: No Accompanied by: Self / Same As Patient Allergies No Known Allergies Allergy (Verified 04/08/25 08:52) Medication List - Last Reconciled 04/08/25 by REBECCA Monaco No Known Home Meds Tobacco use date assessed: 04/08/25 Dental Screening Dental Screen Date: 04/08/25 Did you have a dental visit in the last 12 months?: Yes Did you have a dental problem in the last 6 months where you did not have access to dental care?: No Was dental information given to patient?: Patient has dentist HPI PHYSICAL HPI Details Dentist:up to date Eye: no Snellen: Right: Left: Corrected vision: cheaters STI screening: Colonoscopy: Reports that she received the cologuard but has not obtain the sample as yet Pap Smer: PHQ-9: Flu: Up-to-date COVID: x2 Tdap: up to date-reports getting this in the Diet: regular Exercise:The patient is active. The patient is a 45-year-old male presenting with a recent shoulder injury and associated symptoms. The patient reports a fall down the stairs resulting in a nondisplaced fracture of the greater tuberosity, with associated tingling in the pinky finger. The injury occurred recently, and the patient has been experiencing shoulder pain and tingling since then. The patient also reports a history of slowness in nerve conduction, which was identified during a nerve study. This condition has been present for some time, and the patient has experienced intermittent symptoms. The patient has elevated liver enzymes, which were noted during recent lab work. The patient admits to consuming alcohol quite a bit recently, which may be contributing to the liver enzyme elevation. The patient has a history of hyperlipidemia, with recent lab results indicating elevated cholesterol levels. The patient has been advised to modify his diet to manage cholesterol levels without medication at this time. The patient reports symptoms of depression and anxiety, which have been exacerbated by recent personal stressors, including a divorce. The patient is interested in starting medication for depression and has been prescribed Zoloft 50 mg daily. [facility] Medical History Asthma Seizure Family History Father Age: 79 Hypertension Skin cancer Mother Dementia Social History Household Members: Friend(s) Both parents involved: No Caregiver staying overnight: No Housing: Apartment Alcohol intake: current Patient Tobacco Use Status: Never used Tobacco e-Cigarette/Vaping Use: Former Use service: Yes Current occupational status: employed Current occupation: [employer] Current occupational exposures/hazards: No Cognitive needs: No Hearing needs: No Vision needs: Yes Questionnaire Thrive Questionnaire Date Thrive assessed: 02/25/25 I am a: Patient What is your living situation today?: I have a steady place to live Within the past 12 months, did the food you bought not last and you didn't have the money to get more?: Never true Within the past 12 months, did you worry whether your food would run out before you got money to buy more?: Never true Do you have trouble paying for medicines?: I choose not to answer this question Do you have trouble getting transportation to medical appointments?: I choose not to answer this question Do you have trouble paying your heating and electricity bill?: I choose not to answer this question Do you have trouble taking care of your child, family member or friend?: I choose not to answer this question Do you have trouble with day-to-day activities such as bathing, preparing meals, shopping, managing finances, etc.?: No Are you currently unemployed and looking for a job?: No Are you interested in more education?: No Currently or been in a relationship where the following occur: I choose not to answer THRIVE Score: 0 JOEL-7 AMB Questionnaire JOEL-7 Date JOEL - 7 assessed: 02/25/25 Source: Developed by Drs. Aiden Alegria, Yessenia eLvy, Ricky Butler and colleagues, with an educational stefano from [employer]. Review of Systems Const Denies headache(s) Eyes Denies loss of vision ENT Denies vertigo, Denies dizziness, Denies headache(s) and Denies sore throat Card Denies chest pain, Denies leg edema and Denies lightheadedness Resp Denies cough, Denies hemoptysis and Denies wheezing GI Denies abdominal pain, Denies melena, Denies constipation, Denies diarrhea and Denies vomiting Denies dysuria, Denies urinary frequency and Denies urinary urgency Musc Denies arthralgias, Denies joint swelling, Denies numbness and Denies tingling Neuro Denies Abnormal speech present, Denies behavioral changes, Denies vertigo, Denies dizziness, Denies headache(s), Denies loss of vision, Denies memory loss, Denies numbness and Denies tingling Psych Denies anxiety, Denies behavioral changes, Reports depression, Denies memory loss and Denies panic attacks Catrachito/Lymph Denies easy bleeding and Denies easy bruising Aller/Immun Denies wheezing Physical exam (Primary Care) Vital Signs: Last Vital Signs Temp 96.9 F 04/08/25 08:33 Pulse 100 04/08/25 08:33 Resp 18 04/08/25 08:33 BP 128/98 H 04/08/25 08:33 Pulse Ox 92 04/08/25 08:33 Oxygen Delivery Method Room Air 04/08/25 08:33 BMI result Body Mass Index 25.9 Tobacco/Smoking Status: Tobacco use Status Tobacco use date assessed 04/08/25 04/08/25 08:34 Patient Tobacco Use Status Never used Tobacco 04/08/25 08:34 e-Cigarette/Vaping Use Former Use 04/08/25 08:34 Thrive Assessment: Date of Thrive Assessment Date Thrive assessed 02/25/25 04/08/25 08:34 Currently or been in a relationship where the following occur: I choose not to answer Const General: healthy appearing, no acute distress, alert and awake Nutritional Appearance: well nourished Orientation/consciousness: oriented to person, oriented to place and oriented to time HENMT Ears: TM's normal bilaterally General nose exam: Normal nasal mucous membranes and turbinates present Eyes Conjunctivae: conjunctivae normal Sclerae: sclerae normal Pupils: Equal, round and reactive pupils present Neck Neck: Yes no lymphadenopathy and Yes no JVD Thyroid: Thyroid normal Carotids: no bruits Resp Effort & Inspection: normal respiratory effort and not tachypneic Auscultation: no crackles, no rales, no rhonchi and no wheezes Cardio Rate: regular rate Rhythm: regular rhythm Heart sounds: no murmurs and normal S1 and S2 GI Palpation (GI): Soft to palpation, nontender, no hepatomegaly and no splenomegaly Auscultation: normal bowel sounds Skin General skin exam: no rashes or lesions noted and dry skin Neuro General: oriented to person, oriented to place and oriented to time Cranial nerves: Yes Equal, round and reactive pupils present Speech: No Abnormal speech present Gait exam (Neuro): Normal gait present Motor exam (neuro): no tremor noted Deep tendon reflexes (DTR's): Right triceps reflex intensity grade: 2+, Left triceps reflex intensity grade: 2+, Rt Biceps (C5, C6): 2+, Left biceps reflex intensity grade: 2+, Right brachioradialis reflex intensity grade: 2+, Left brachioradialis reflex intensity grade: 2+, Right patellar reflex intensity grade: 2+ and Left patellar reflex intensity grade: 2+ Extrem Right upper extremity: full ROM and shoulder/upper arm Details: abnormal ROM Details: pain with passive ROM (discomfort) Details: with internal rotation Left upper extremity: full ROM Right lower extremity: full ROM; no edema Left lower extremity: full ROM; no edema Psych Mental Status: mental status grossly normal Speech and movement: Normal speech and movement present Affect: normal affect Attitude: cooperative Thought process: Normal thought process present Results Reviewed Results Reviewed: Laboratory Tests 02/28/25 02/28/25 02/28/25 08:35 08:42 08:43 WBC 5.7 RBC 5.04 Hgb 15.9 Hct 45.0 MCV 89.3 MCH 31.5 MCHC 35.3 RDW 12.7 Plt Count 213 MPV 8.4 L Sodium 138 Potassium 3.6 Chloride 101 Carbon Dioxide 28 Anion Gap 13 BUN 8 L Creatinine 0.76 Estim Creat Clear Calc Not Reportable Estimated GFR > 60 Fasting Glucose 93 Calcium 9.7 Total Bilirubin 1.6 H AST 55 H ALT 91 H Alkaline Phosphatase 93 Total Protein 7.9 Albumin 4.6 Triglycerides 147 Cholesterol 250 H LDL Cholesterol, Calc 156 H HDL Cholesterol 65 25-OH Vitamin D Total 28.1 L TSH 0.77 Urine Color Dark Yellow Urine Appearance Clear Urine pH 6.0 Ur Specific Holcomb 1.010 Urine Protein Negative Urine Glucose (UA) Negative Urine Ketones 15 Urine Blood Negative Urine Nitrite Negative Ur Leukocyte Esterase Negative Coding Level of Care Code Est Pt Prev Care 40-64y([id number]) Diagnoses Annual physical exam Z00.00 Numbness and tingling of right arm R20.0; R20.2 Right shoulder pain, unspecified chronicity M25.511 Chronicity: unspecified Sprain of left ankle, unspecified ligament, subsequent encounter S93.402D Encounter type: subsequent encounter Involved ligament of ankle: unspecified ligament Elevated liver enzymes R74.8 Vitamin D deficiency E55.9 Presbyopia H52.4 Hyperlipidemia, unspecified hyperlipidemia type E78.5 Hyperlipidemia type: unspecified Depression, unspecified depression type F32.A Depression Type: unspecified Time Spent (min) 39 Assessment & Plan Assessment & Plan (1) Annual physical exam: Code(s): Z00.00 - Encounter for general adult medical examination without abnormal findings Category: Medical Plan: Preventative guidelines and recent labs reviewed with patient. Deborah ordered on previous visit; he already got the kit, but did not send the sample as yet. (2) Numbness and tingling of right arm: Code(s): R20.0 - Anesthesia of skin; R20.2 - Paresthesia of skin Category: Medical Plan: s/p fall on right side, hitting right shoulder and right elbow regions. Patient had a right shoulder x-ray on 02/28/2025 that showed a nondisplaced fracture of the right greater tuberosity. EMG and NSC studies were unremarkable other than decreased amplitude in slow conduction velocity of the right dorsal cutaneous sensory study. The slowness in nerve conduction will be addressed through physical therapy, which may help alleviate any nerve compression. (3) Right shoulder pain: Code(s): M25.511 - Pain in right shoulder Category: Medical Qualifiers: Chronicity: unspecified Qualified Code(s): M25.511 - Pain in right shoulder Plan: Patient had a right shoulder x-ray on 02/28/2025 that showed a nondisplaced fracture of the right greater tuberosity. PT to evaluate and treat. Patient has draining for the coming up. Stefano note to hold off on pushups until cleared by PT. (4) Left ankle sprain: Code(s): S93.402A - Sprain of unspecified ligament of left ankle, initial encounter Category: Medical Qualifiers: Encounter type: subsequent encounter Involved ligament of ankle: unspecified ligament Qualified Code(s): S93.402D - Sprain of unspecified ligament of left ankle, subsequent encounter Plan: Left ankle sprain with slight discomfort on and off but has improved significantly. Continue modified activity as tolerated (5) Elevated liver enzymes: Code(s): R74.8 - Abnormal levels of other serum enzymes Category: Medical Plan: AST 55, ALT 91 Liver enzymes continue to be moderately elevated. Encouraged the patient to cut down on his alcohol intake. Limit the use of medication containing Tylenol or acetaminophen. We will repeat CMP in 3 months (6) Vitamin D deficiency: Code(s): E55.9 - Vitamin D deficiency, unspecified Category: Medical Plan: Vitamin D supplementation is recommended to address the deficiency. (7) Presbyopia: Code(s): H52.4 - Presbyopia Category: Medical Plan: continue cheaters as needed. (8) HLD (hyperlipidemia): Code(s): E78.5 - Hyperlipidemia, unspecified Category: Medical Qualifiers: Hyperlipidemia type: unspecified Qualified Code(s): E78.5 - Hyperlipidemia, unspecified Plan: Triglycerides 147, total cholesterol 250, LDL 156, HDL 65 Discussed lifestyle modifications including dietary changes and physical activity We will repeat lipid panel in 3 months (9) Depression: Code(s): F32.A - Depression, unspecified Category: Medical Qualifiers: Depression Type: unspecified Qualified Code(s): F32.A - Depression, unspecified Plan: Patient reports struggling with his divorce; verbalized the difficult to lose in his family. Denies SI/HI The patient will start Zoloft 50 mg daily, with a follow-up in four weeks to assess the effectiveness and adjust the dosage if necessary. We will put in a referral a therapist Orders: Orders PT Evaluation and Treatment 04/08/25 M25.511 - Pain in right shoulder, R20.0 - Anesthesia of skin, R20.2 - Paresthesia of skin TSH reflex Free T4 3 Months E55.9 - Vitamin D deficiency, unspecified, E78.5 - Hyperlipidemia, unspecified, R74.8 - Abnormal levels of other serum enzymes Vitamin D 25-OH Total 3 Months E55.9 - Vitamin D deficiency, unspecified, E78.5 - Hyperlipidemia, unspecified, R74.8 - Abnormal levels of other serum enzymes Lipid Panel 3 Months E55.9 - Vitamin D deficiency, unspecified, E78.5 - Hyperlipidemia, unspecified, R74.8 - Abnormal levels of other serum enzymes UA CC w/rflx Micro + Cult 3 Months E55.9 - Vitamin D deficiency, unspecified, E78.5 - Hyperlipidemia, unspecified, R74.8 - Abnormal levels of other serum enzymes Comprehensive [place]. Panel Fast 3 Months E55.9 - Vitamin D deficiency, unspecified, E78.5 - Hyperlipidemia, unspecified, R74.8 - Abnormal levels of other serum enzymes Referrals Counseling Referral F32.A - Depression, unspecified Medications: New sertraline (Zoloft) 50 mg PO DAILY 30 tabs 3RF
--- OUTSIDE RECORDS SUMMARY | 2025-04-08 09:06 | XMS_ITS | Clinical Summary ---
Author Organization [facility] ity Address [address] [place] [address] Care Team Providers Care Ammonia Worker Name Role Phone Unavailable Primary Care [...]
--- OUTSIDE RECORDS SUMMARY | 2025-04-08 09:06 | XMS_ITS | Clinical Summary ---
Author Organization [facility] Address [address] [place] [id number] Phone Care Team Providers Care Executive Meeting Manager Name Role Phone Unknown, Unknown Primary Care [...] topic Medical Devices Not on file Insurance Plun[employer] [facility] Plunify [facility] Care Teams Executive Meeting Manager Relationship Specialty Start Date End Date Unknown, Unknown, PCP - General 02/22/20 Additional Source Comments The information contained in this document represents components of the legal health record. It is not the complete legal health record.[facility]
== END 2025-04-08 09:25 | disposition home or self-care (01) ==
LOC: HO.HMCH 08:32
DX: Z00.00 Encounter for general adult medical examination without abnormal findings (principal); R20.0 Anesthesia of skin; R20.2 Paresthesia of skin; M25.511 Pain in right shoulder; S93.402D Sprain of unspecified ligament of left ankle, subsequent encounter; R74.8 Abnormal levels of other serum enzymes; E55.9 Vitamin D deficiency, unspecified; H52.4 Presbyopia; E78.5 Hyperlipidemia, unspecified; F32.A Depression, unspecified

== ENCOUNTER 2025-05-06 11:36 | Outpatient (AMB) | payer OTHER, SELFPAY ==
--- NOTE | 2025-05-06 11:36 | A.OFFPC_ITS ---
Intake Visit Reasons: depression -telehealth Occupational Health And Safety Officer Required: No Accompanied by: Self / Same As Patient Allergies sertraline (From Zoloft) Allergy (Intermediate, Verified 05/06/25 11:43) Diarrhea Medication List - Last Reconciled 05/06/25 by REBECCA Monaco No Known Home Meds Tobacco use date assessed: 04/08/25 Dental Screening Dental Screen Date: 04/08/25 HPI depression -telehealth HPI Details This is a medically necessary visit as the patient would typically be seen in the office, however, the patient is unable to come in the office so the visit was converted to an audiovisual, telephone visit format with patient's consent and request. Patient understands that this visit was in place of an in person visit and is aware of the risks of communicating via phone/computer and verbally consents. The patient is a 45-year-old male presenting to follow up appointment for depression The patient was started on Zoloft at his previous visit Patient reports that he took this medication for about a week and discontinued it due to diarrhea The patient is has a remote history of seizure at 6 years old that has not reoccurred since He denies /hi [facility] Medical History Asthma Seizure Surgical History No pertinent past surgical history Family History Father Age: 79 Hypertension Skin cancer Mother Dementia Other Mental health disorder Social History Household Members: Friend(s) Both parents involved: No Caregiver staying overnight: No Housing: Apartment Alcohol intake: current Alcohol intake frequency: a few times a week Patient Tobacco Use Status: Former Tobacco user e-Cigarette/Vaping Use: Former Use Second Hand Smoke Exposure: Yes service: Yes Current occupational status: employed Current occupation: [employer] Current occupational exposures/hazards: No Cognitive needs: No Hearing needs: No Vision needs: Yes Questionnaire Thrive Questionnaire Date Thrive assessed: 02/25/25 JOEL-7 AMB Questionnaire JOEL-7 Date JOEL - 7 assessed: 02/25/25 Source: Developed by Drs. Aiden Alegria, Yessenia Levy, Ricky Butler and colleagues, with an educational stefano from [employer]. Review of Systems Const Denies body aches, Denies chills, Denies fever(s), Denies headache(s) and Denies poor appetite Eyes Reports no additional complaints ENT Denies dysphagia, Denies dizziness, Denies headache(s) and Denies odynophagia Card Denies chest pain, Denies syncope, Denies edema, Denies irregular heart rhythm, Denies lightheadedness and Denies dyspnea Resp Denies cough and Denies dyspnea GI Denies abdominal pain, Denies constipation, Denies dysphagia, Denies diarrhea, Denies nausea, Denies odynophagia and Denies vomiting Reports no additional complaints Musc Reports no additional complaints and Denies abnormal gait Skin/Breast Reports system reviewed and no additional complaints, except as documented Neuro Denies abnormal gait, Denies dizziness, Denies syncope and Denies headache(s) Psych Reports depression Physical exam (Primary Care) Tobacco/Smoking Status: Tobacco use Status Tobacco use date assessed 04/08/25 05/06/25 11:38 Patient Tobacco Use Status Former Tobacco user 05/06/25 11:40 e-Cigarette/Vaping Use Former Use 05/06/25 11:39 Thrive Assessment: Date of Thrive Assessment Date Thrive assessed 02/25/25 05/06/25 11:38 Const Other: Telemedicine visit with real time audio video Received verbal consent given by patient for today's visit via telemedicine Physical examination is not performed as visit / consultation today is done over videoconference - Telehealth visit All physical findings indicated here, if present, are as per patient's and / or caregivers / proxy's report and visual inspection over videoconference, if appropriate or applicable Telehealth Telehealth Telehealth Platform: Telephone Location of provider rendering services: practice address Location of patient: address on file Patient Identification confirmed using: Name, : Yes Telehealth method: voice only Patient verbally consented to treatment: Yes Patient verbally consented to billing insurance company: Yes Patient informed of any privacy concerns related to visit: Yes Minutes spent on Phone/Video with Pt.: 16 Coding Level of Care Code Tele Est Pt Level 3 (00473) Diagnoses Depression, unspecified depression type F32.A Depression Type: unspecified Time Spent (min) 31 Assessment & Plan Assessment & Plan (1) Depression: Code(s): F32.A - Depression, unspecified Category: Social Hx Qualifiers: Depression Type: unspecified Qualified Code(s): F32.A - Depression, unspecified Plan: The patient was initially started on zoloft which cause extreme diarrhea and was stopped in a week. Depression symptoms persist without any si/hi. History of one remote episode of seizure at the at of 6 years old. Low risk for recurrent of seizure, will start bupropion 150 mg xl daily. Will continue to monitor. Medications: New bupropion HCl XL (Wellbutrin XL) 150 mg PO QAM 30 tabs 3RF
--- OUTSIDE RECORDS SUMMARY | 2025-05-06 14:21 | XMS_ITS | Clinical Summary ---
Author Organization [facility] ity Address [address] [place] [address] Care Team Providers Care Manganese Wheeler Name Role Phone Unavailable Primary Care Provider Unavailabl e Social History Tobacco Use Types Packs/Day Years Used Date Smoking Tobacco: Never Assessed Sex and Gender Information Value Date Recorded Sex Assigned at Not on file Legal Sex Male 8:09 PM EST Gender Identity Not on file Sexual Orientation Not on file Plan of Treatment Health Maintenance Due Date Last Done Comments Colorectal Cancer Screening: Colonoscopy 1978 DTaP,Tdap,and Td Vaccines (1 - Tdap) 1997 Hepatitis B Vaccines (1 of 3 - 19+ 3-dose series) 1997 Cholesterol Screening (Lipid Panel) 08/14/2023 HIV Screening 08/14/2023 Hepatitis C Screening 08/14/2023 Social Influencers of Health Screening 08/14/2023 Depression Screening 07/21/2024 COVID-19 Vaccine (1 - 2023-2 5 season) 2025 Influenza Vaccine (#1) 2025 RSV Immunization Adult Patie nts (1 - 1-dose 75+ series) 2053 HIB Vaccines Aged Out No longer eligi [...]
--- OUTSIDE RECORDS SUMMARY | 2025-05-06 14:22 | XMS_ITS | Clinical Summary ---
Author Organization [facility] Address [address] [place] [address] Care Team Providers Care Supervisor Body Assembly Name Role Phone Pcp, No Primary Care Provider [phone] Allergies No known active allergies Medications No [...] Adults 18 yrs or above (or HM Modifier)([facility]) 1996 Hepatitis C Virus Infection in Adolescents and Adults: Screening (or Modifier) ([facility]) 1996 SDND Screening Reminder: Asmita rosen for all adults ([facility]) 1996 Tobacco Smoking Cessation: i n Adults excluding Women: Behavioral and Pharmacotherapy Interventions ([facility]) 1996 DTaP/Tdap/Td Vaccines ([facility]) (1 - Tdap) 1997 Colorectal Cancer Screening 45 -75 Yrs (or HM Modifier) 2023 Colorectal Cancer: FLEXIBLE SIGMOIDOSCOPY Screening every 5 yrs 2023 Colorectal Cancer: Fecal Immunochemical Test (FIT) Annually [facility] 2023 Colorectal Cancer: High-sens itivity gFOBT Screening Annually [facility] 2023 Colorectal Cancer: Stool Col oguard Screening every 3 yrs 2023 Colorectal Cancer:CT Colonog warren Screening every 5 yrs 2023 Flu Vaccination: Yearly for ages 18mos through 64 years (or Modifier)([facility]) 02/18/2025 COVID-19 Vaccine Screening: Initial Series and Booster Status ([facility]) ( season) 2025 Zoster/Shingles Vaccine Seri es Screening: Adults aged 18+ yrs (or HM Modifiers)([facility]) (1 of 2) 2028 Pneumococcal Vaccination Scr eening: Pts 0-19 & 19-49 yrs of age ([facility]) Aged Out No longer eligible based on patient's age to complete this topic Medical Devices Not on file Care Teams Supervisor Body Assembly Relationship Specialty Start Date End Date Pcp, No PCP - General Family Medicine 08/15/21
== END 2025-05-06 12:25 | disposition home or self-care (01) ==
LOC: HO.HMCH 11:36
DX: F32.A Depression, unspecified (principal)